=== PATIENT | female | born 1930 | race Caucasian/White ===

== ENCOUNTER 2018-03-23 13:07 | Inpatient (IN) ==
[2018-03-23] MEDS ORDERED: Bisacodyl 10 MG Supp RECTAL PRN (15:29)
[2018-03-23] MEDS ORDERED: Acetaminophen 325 MG Tablet PO PRN (15:29)
[2018-03-23] MEDS ORDERED: Aluminum/Magnesium/Simethacone Susp 30 ML UDC PO PRN (15:59)
[2018-03-23] MEDS ORDERED: Acetaminophen/Codeine 300/30 MG Tablet PO PRN (16:00)
--- NOTE | 2018-03-23 16:18 | XR ---
EXAM DATE: 03/23/2018 4:15 PM EST AGE/SEX: 87 years / Female INDICATIONS: Shortness of breath. CLINICAL DATA: This is the patient's initial encounter. Patient reports that signs and symptoms have been present for 1 day and indicates a pain score of 0/10. MEDICAL/SURGICAL HISTORY: Congestive heart failure. Stroke. None. COMPARISON: POI, XR CHEST PA AND LAT, 04/30/2016. . FINDINGS: Bilateral pulmonary infiltrates are noted consistent with pulmonary edema or pneumonia. Clinical le elation is recommended. The heart is mildly enlarged but stable. Right shoulder prosthesis is noted. Degenerative changes and scoliosis are noted throughout the thoracolumbar spine. CONCLUSION: 1. Bilateral pulmonary infiltrates are noted consistent with pulmonary edema or pneumonia. Clinical correlation is recommended. 2. Mild cardiomegaly. 3. Degenerative changes and scoliosis are noted throughout the thoracolumbar spine. Electronically signed by: Kyree Page MD Board Certified Radiologist 03/23/2018 4:17 PM EST
[2018-03-23 17:15] LABS: Baso # (Auto) 0.1 th/mm3 (0.0-0.2); Baso % (Auto) 0.7 % (0.0-2.0); Eos # (Auto) 0.3 th/mm3 (0.0-0.4); Eos % (Auto) 2.9 % (0.0-4.0); Hematocrit 43.1 % (35.0-46.0); Hemoglobin 14.4 gm/dL (11.6-15.3); Lymph % (Auto) 10.8 % (9.0-44.0); Mean Corpuscular HGB Conc 33.4 % (32.0-36.0); Mean Corpuscular Hemoglobin 31.3 pg (27.0-34.0); Mean Corpuscular Volume 93.9 fL (80.0-100.0); Mean Platelet Volume 11.1 fL (7.0-11.0); Mono # (Auto) 0.8 th/mm3 (0.0-0.9); Mono % (Auto) 9.1 % (0.0-8.0); Neut # (Auto) 7.1 th/mm3 (1.8-7.7); Neut % (Auto) 76.5 % (16.0-70.0); Platelet Count 235 th/mm3 (150-450); Red Blood Count 4.59 mil/mm3 (4.00-5.30); Red Cell Distribution Width 15.1 % (11.6-17.2); White Blood Count 9.3 th/mm3 (4.0-11.0)
[2018-03-23 17:23] LABS: INR 1.3 Ratio; Prothrombin Time 12.8 sec (9.8-11.6)
--- NOTE | 2018-03-23 17:28 | P.HPIM ---
History of Present Illness Primary Care Physician: UNKNOWN History of Present Illness: 87-year-old female with a history of atrial fibrillation, hypertension, diastolic CHF who presents as a direct admission from her pull tab dealer Dr. Waller's office with a 3-week history of progressively worsening shortness of breath, generalized fatigue, as well as bilateral lower extremity swelling now with weeping in bilateral legs over the past 3 days. She denies any chest pain. Denies any nausea or vomiting. Denies any cough. Denies any recent medication changes. daughter reports that echocardiogram was performed in Dr. Smith's office. Inpatient Certification: I certify that the inpatient services were ordered in accordance with Medicare regulations governing the order. This includes certification that hospital inpatient services are reasonable and necessary and in the case of services not specified as inpatient-only under 42 CFR 419.22(n), that they are appropriately provided as inpatient services in accordance to with the 2-midnight benchmark under 43 CFR 412.3(e) Estimated Total Length of Stay (Days): 2 Plans for Post Hospital Care: Not yet determined Review of Systems All other systems reviewed negative except as stated in HPI PMFSH - History History Provided By: Patient - Medical History Medical History: Medical History (Last Reviewed 03/23/18 @ 17:19 by Jacobo Cheng MD) Atrial fibrillation CVA (cerebral vascular accident) Cataract Diastolic CHF GERD (gastroesophageal reflux disease) Hypertension Hypothyroidism Mitral regurgitation Neuropathy Overactive bladder - Surgical History Surgical History: Surgical History (Last Reviewed 03/23/18 @ 17:19 by Jacobo Cheng MD) History of appendectomy History of bladder surgery History of cholecystectomy History of hip replacement History of knee replacement procedure of left knee History of knee replacement procedure of right knee - Family History Family History: Family History (Last Reviewed 03/23/18 @ 17:19 by Jacoob Cheng MD) Father Emphysema of lung Mother Age older than 85 years - Social History I have reviewed the patient's Social History: Yes - Tobacco History Second Hand Smoke Exposure: No Tobacco Use In Past 30 Days: No Smoking Status: Former smoker Tobacco Type: Cigarettes - Alcohol History How Often Do You Have a Drink Containing Alcohol: Never - Substance Use History Substance History: No History of Abuse Medications and Allergies Active Medications: Active Medications Acetaminophen (Tylenol) 650 mg PO Q4H PRN PRN Reason: PAIN 1-3 OR TEMP >101 F Acetaminophen/Codeine Phosphate (Tylenol W/Cod #3) 2 tab PO Q4H PRN PRN Reason: MODERATE PAIN 4-5 Al Hydrox/Mg Hydrox/Simethicone (Mag-Al Plus Susp Liq) 30 ml PO Q2H PRN PRN Reason: CONSTIPATION Al Hydroxide/Mg Hydroxide (Milk Of Magnesia Liq) 30 ml PO Q12H PRN PRN Reason: Mild Constipation Bisacodyl (Dulcolax Supp) 10 mg RECTAL DAILY PRN PRN Reason: SEVERE CONSITIPATION Furosemide (Lasix Inj) 40 mg IV.PUSH BID [facility] Lactulose (Lactulose Liq) 30 ml PO DAILY PRN PRN Reason: SEVERE CONSITIPATION Levothyroxine Sodium (Synthroid) 75 mcg PO DAILY@0600 [facility] Ondansetron HCl (Zofran Inj) 4 mg IV.PUSH Q6H PRN PRN Reason: NAUSEA OR VOMITING Rivaroxaban (Xarelto) 20 mg PO DAILY [facility] Sennosides (Senokot) 17.2 mg PO Q12H PRN PRN Reason: Moderate Constipation Sodium Chloride (Ns Flush) 2 ml IV.FLUSH BID [facility] Sodium Chloride (Ns Flush) 2 ml IV.FLUSH PRN PRN PRN Reason: FLUSH AFTER USING IV ACCESS Spironolactone (Aldactone) 25 mg PO BID [facility] Temazepam (Restoril) 15 mg PO HS PRN PRN Reason: SLEEP Allergies Allergy/AdvReac Type Severity Reaction Status Date / Time aspirin Allergy Severe GI BLEED Unverified 11/17/16 13:22 diclofenac Allergy Severe GI BLEED Unverified 11/17/16 13:22 etodolac Allergy Severe GI BLEED Unverified 11/17/16 13:22 flurbiprofen Allergy Severe GI BLEED Unverified 11/17/16 13:22 ibuprofen Allergy Severe GI BLEED Unverified 11/17/16 13:22 indomethacin Allergy Severe GI BLEED Unverified 11/17/16 13:22 ketoprofen Allergy Severe GI BLEED Unverified 11/17/16 13:22 ketorolac Allergy Severe GI BLEED Unverified 11/17/16 13:22 naproxen Allergy Severe GI BLEED Unverified 11/17/16 13:22 oxaprozin Allergy Severe GI BLEED Unverified 11/17/16 13:22 penicillin G Allergy Intermediate Hives Unverified 11/17/16 13:22 codeine Allergy Mild N/V Unverified 11/17/16 13:22 morphine AdvReac Intermediate NAUSEA Unverified 11/17/16 13:22 Home Medications Medication Instructions Recorded Confirmed Type furosemide [Lasix] 20 mg PO DAILY 03/23/18 03/23/18 History gabapentin 100 mg PO DAILY 03/23/18 03/23/18 History levothyroxine [Synthroid] 75 mcg PO DAILY 03/23/18 03/23/18 History nifedipine [Procardia XL] 30 mg PO DAILY 03/23/18 03/23/18 History rivaroxaban [Xarelto] 20 mg PO QPM 03/23/18 03/23/18 History spironolactone 25 mg PO BID 03/23/18 03/23/18 History vitamin [id number] acid 1 tab PO DAILY 03/23/18 03/23/18 History Exam Vital signs: Vital Signs 03/23/18 16:38 Pulse Rate 87 Respiratory Rate 20 Blood Pressure 125/79 Pulse Oximetry 97 Narrative: GENERAL: Patient sitting up in chair. Appears comfortable. SKIN: Warm and dry. HEAD: Atraumatic. Normocephalic. EYES: Pupils equal and round. No scleral icterus. No injection or drainage. ENT: No nasal bleeding or discharge. Mucous membranes pink and moist. NECK: Trachea midline. No JVD. CARDIOVASCULAR: Regular rate and rhythm. RESPIRATORY: No accessory muscle use. Clear to auscultation. Patient has some crackles in the bases. Breath sounds equal bilaterally. GASTROINTESTINAL: Abdomen soft, non-tender, nondistended. Hepatic and splenic margins not palpable. MUSCULOSKELETAL: Extremities without clubbing, cyanosis. +3 bilateral lower extremity edema with very faint erythema, weeping. No obvious deformities. NEUROLOGICAL: Awake and alert. No obvious cranial nerve deficits. Motor grossly within normal limits. Five out of 5 muscle strength in the arms and legs. Normal speech. PSYCHIATRIC: Appropriate mood and affect; insight and judgment normal. Results - Imaging Impressions Chest X-Ray 03/23/18 00:00 CONCLUSION: 1. Bilateral pulmonary infiltrates are noted consistent with pulmonary edema or pneumonia. Clinical correlation is recommended. 2. Mild cardiomegaly. 3. Degenerative changes and scoliosis are noted throughout the thoracolumbar spine. Caprini VTE Risk Assessment Caprini VTE Risk Assessment: Moderate/High Risk (score >= 2) Caprini Risk Assessment Model: Point Value = 1 Point Value = 2 Point Value = 3 Point Value = 5 Age 41-60 Minor surgery BMI > 25 kg/m2 Swollen legs Varicose veins or History of unexplained or recurrent spontaneous Oral contraceptives or hormone replacement Sepsis (< 1 month) Serious lung disease, including pneumonia (< 1 month) Abnormal pulmonary function Acute myocardial infarction Congestive heart failure (< 1 month) History of inflammatory bowel disease Medical patient at bed rest Age 61-74 Arthroscopic surgery Major open surgery (> 45 min) Laparoscopic surgery (> 45 min) Malignancy Confined to bed (> 72 hours) Immobilizing plaster cast Central venous access Age >= 75 History of VTE Family history of VTE Factor V Leiden Prothrombin [id number] Lupus anticoagulant Anticardiolipin antibodies Elevated serum homocysteine Heparin-induced thrombocytopenia Other congenital or acquired thrombophilia Stroke (< 1 month) Elective arthroplasty Hip, pelvis, or leg fracture Acute spinal cord injury (< 1 month) Prophylaxis Regimen: Total Risk Factor Score Risk Level Prophylaxis Regimen 0-1 Low Early ambulation 2 Moderate Order ONE of the following: *Sequential Compression Device (SCD) *Heparin 5000 units SQ BID 3-4 Higher Order ONE of the following medications: *Heparin 5000 units SQ TID *Enoxaparin/Lovenox 40 mg SQ daily (WT < 150 kg, CrCl > 30 mL/min) *Enoxaparin/Lovenox 30 mg SQ daily (WT < 150 kg, CrCl > 10-29 mL/min) *Enoxaparin/Lovenox 30 mg SQ BID (WT < 150 kg, CrCl > 30 mL/min) AND/OR *Sequential Compression Device (SCD) 5 or more Highest Order ONE of the following medications: *Heparin 5000 units SQ TID (Preferred with Epidurals) *Enoxaparin/Lovenox 40 mg SQ daily (WT < 150 kg, CrCl > 30 mL/min) *Enoxaparin/Lovenox 30 mg SQ daily (WT < 150 kg, CrCl > 10-29 mL/min) *Enoxaparin/Lovenox 30 mg SQ BID (WT < 150 kg, CrCl > 30 mL/min) AND *Sequential Compression Device (SCD) Assessment and Plan - Plan //Acute diastolic CHF exacerbation. = Direct admission from pull tab dealer office -Echocardiogram with Doppler performed at Dr. Smith's office = Chest x-ray with bilateral pulmonary edema. Extreme bilateral lower extremity edema = Basic labs including BNP ordered. = We will consult pull tab dealer. Patient placed on twice daily IV Lasix, spironolactone. Fluid restrictions. Continue to monitor fluid status. Monitor labs tomorrow. //History of atrial fibrillation with history of CVA. Continue on Xarelto at night with dinner. /Hypertension. Blood pressure acceptable. Patient with significant bilateral lower extremity edema. Will hold off on nifedipine until return BNP. Patient may benefit from change in medication. Blood pressure acceptable currently. Continue to monitor. //Hypothyroidism. Chronic. Patient denies chills, however appears to be cold in the room which does not seem to be that cold. We will check TSH. //Chronic neuropathy. Continue home medication. Discussed Condition With: Patient, nurse, daughter at bedside, pull tab dealer Discharge Planning: Pending improvement PT consult ordered and pending. H&P: Quality - VTE Deep Vein Thrombosis/Pulmonary Embolism Present on Admission: No
[2018-03-23 17:35] LABS: Albumin 3.4 g/dL (3.4-5.0); Anion Gap 7 meq/L (5-15); Aspartate Aminotransferase 22 U/L (15-37); Blood Urea Nitrogen 26 mg/dL (7-18); Calcium 9.1 mg/dL (8.5-10.1); Carbon Dioxide 27.9 meq/L (21.0-32.0); Chloride 105 meq/L (98-107); Glomerular Filtration Rate 47 mL/min (>89); Glucose,Random 96 mg/dL (74-106); Potassium 4.2 meq/L (3.5-5.1); Sodium 140 meq/L (136-145)
[2018-03-23 17:38] LABS: Alanine Aminotransferase 14 U/L (10-53); Alkaline Phosphatase 71 U/L (45-117); Total Protein 7.5 g/dL (6.4-8.2)
[2018-03-23] MEDS ORDERED: Rivaroxaban 20 MG Tablet PO SCH (18:00)
[2018-03-23] MEDS ORDERED: Temazepam 15 MG Capsule PO PRN (21:00)
[2018-03-23 23:21] LABS: Bacteria,Urine Rare /hpf; Bilirubin,Urine Negative (Negative); Clarity,Urine Hazy (Clear); Color,Urine Yellow (Yellw/Straw); Glucose,Urine (UA) Negative (Negative); Hyaline Casts,Urine 3 /lpf (0-3); Leukocyte Esterase,Urine Moderate (Negative); Mucus,Urine Few /lpf (Occasional); Nitrite,Urine Negative (Negative); Specific Gravity,Urine 1.019 (1.002-1.035); Squamous Epithelial Cell,Urine 1 /hpf (0-5)
[2018-03-24] MEDS: Spironolactone 25 MG Tablet PO SCH ×3 (00:21→21:26)
[2018-03-24] MEDS: Levothyroxine 75 MCG Tablet PO SCH (06:14)
[2018-03-24 06:46] LABS: Baso # (Auto) 0.1 th/mm3 (0.0-0.2); Baso % (Auto) 0.8 % (0.0-2.0); Eos # (Auto) 0.3 th/mm3 (0.0-0.4); Eos % (Auto) 3.7 % (0.0-4.0); Hematocrit 41.8 % (35.0-46.0); Hemoglobin 14.2 gm/dL (11.6-15.3); Lymph % (Auto) 11.9 % (9.0-44.0); Mean Corpuscular HGB Conc 33.9 % (32.0-36.0); Mean Corpuscular Hemoglobin 31.3 pg (27.0-34.0); Mean Corpuscular Volume 92.2 fL (80.0-100.0); Mean Platelet Volume 10.6 fL (7.0-11.0); Mono # (Auto) 0.9 th/mm3 (0.0-0.9); Mono % (Auto) 10.7 % (0.0-8.0); Neut # (Auto) 6.4 th/mm3 (1.8-7.7); Neut % (Auto) 72.9 % (16.0-70.0); Platelet Count 229 th/mm3 (150-450); Red Blood Count 4.53 mil/mm3 (4.00-5.30); Red Cell Distribution Width 14.4 % (11.6-17.2); White Blood Count 8.7 th/mm3 (4.0-11.0)
[2018-03-24 07:06] LABS: Albumin 3.1 g/dL (3.4-5.0); Anion Gap 7 meq/L (5-15); Aspartate Aminotransferase 23 U/L (15-37); Blood Urea Nitrogen 27 mg/dL (7-18); Calcium 9.3 mg/dL (8.5-10.1); Carbon Dioxide 25.7 meq/L (21.0-32.0); Chloride 103 meq/L (98-107); Glomerular Filtration Rate 44 mL/min (>89); Glucose,Random 91 mg/dL (74-106); Sodium 136 meq/L (136-145)
[2018-03-24 07:08] LABS: Alanine Aminotransferase 12 U/L (10-53)
[2018-03-24 07:10] LABS: Alkaline Phosphatase 67 U/L (45-117); Total Protein 6.7 g/dL (6.4-8.2)
[2018-03-24] MEDS ORDERED: Rivaroxaban 20 MG Tablet PO SCH (09:00)
--- NOTE | 2018-03-24 09:47 | P.PNWCN ---
Wound Care Nurse Consult Additional information: Patient not seen for Lower L leg wound management. Spoke with RN Purvi Ramirez , per RN skin on L lower extremity is intact, but patient has weeping to L lower extremity. Recommend leaving L lower extremity open to air and apply extrasorb moisture wicking disposable pad under L leg and changing as needed. Please Elevate Bilateral lower extremities with pillows.
[2018-03-24] MEDS: Carvedilol 6.25 MG Tablet PO SCH ×2 (10:35→21:26)
[2018-03-24] MEDS: Acetaminophen 325 MG Tablet PO PRN (10:35)
--- NOTE | 2018-03-24 10:39 | P.CONCA ---
History of Present Illness Service: Cardiology Consult date: 03/24/18 Requesting Physician: Jacobo Cheng Reason for Consult: CHF Primary Care Provider: Dr Purvis Chief Complaint: SOB and edema History of Present Illness: The patient is an 87-year-old female known to our practice with a past cardiac history of atrial fibrillation and stroke anticoagulated on Xarelto, hypertension, moderate to severe left ventricular hypertrophy, new cardiomyopathy with ejection fraction of 40% on echocardiogram in the office yesterday. Patient presented to our office yesterday at the request of Dr. Clement for concerns of weeping bilateral lower extremity and shortness of breath. On evaluation, the patient was noted to be in acute exacerbation of congestive heart failure despite outpatient oral diuretic therapy. She was advised to go to the hospital for which she agreed. Since admission, chest x- ray and lab work are consistent with acute exacerbation of congestive heart failure. Since admission, the patient had a 15 beat run of nonsustained ventricular tachycardia overnight and runs of atrial fibrillation with rapid ventricular response with rates up to 140 bpm. The patient is asymptomatic of nonsustained ventricular tachycardia and tachycardia. Overall, the patient states she feels about the same as she did yesterday. She continues to have symptoms of orthopnea, shortness of breath with exertion and bilateral lower extremity edema. Patient denies symptoms of chest pain, heart palpitations, abdominal fullness, nausea or vomiting. No change in bowel habits. Review of Systems All other systems reviewed negative except as stated in HPI PMFSH - History History Provided By: Patient - Medical History Medical History: Medical History (Last Reviewed 03/25/18 @ 08:39 by Jason Felton, PT) Atrial fibrillation CVA (cerebral vascular accident) Cataract Diastolic CHF GERD (gastroesophageal reflux disease) Hypertension Hypothyroidism Mitral regurgitation Neuropathy Overactive bladder - Surgical History Surgical History: Surgical History (Last Reviewed 03/24/18 @ 08:37 by Aman Dominguez) History of appendectomy History of bladder surgery History of cholecystectomy History of hip replacement History of knee replacement procedure of left knee History of knee replacement procedure of right knee - Family History Family History: Family History (Last Reviewed 03/23/18 @ 17:19 by Jacobo Cheng MD) Father Emphysema of lung Mother Age older than 85 years - Tobacco History Second Hand Smoke Exposure: No Tobacco Use In Past 30 Days: No Smoking Status: Former smoker Tobacco Type: Cigarettes - Alcohol History How Often Do You Have a Drink Containing Alcohol: Never - Substance Use History Substance History: No History of Abuse Medications and Allergies Allergies Allergy/AdvReac Type Severity Reaction Status Date / Time aspirin Allergy Severe GI BLEED Verified 03/23/18 17:42 diclofenac Allergy Severe GI BLEED Verified 03/23/18 17:42 etodolac Allergy Severe GI BLEED Verified 03/23/18 17:42 flurbiprofen Allergy Severe GI BLEED Verified 03/23/18 17:42 ibuprofen Allergy Severe GI BLEED Verified 03/23/18 17:42 indomethacin Allergy Severe GI BLEED Verified 03/23/18 17:42 ketoprofen Allergy Severe GI BLEED Verified 03/23/18 17:42 ketorolac Allergy Severe GI BLEED Verified 03/23/18 17:42 naproxen Allergy Severe GI BLEED Verified 03/23/18 17:42 oxaprozin Allergy Severe GI BLEED Verified 03/23/18 17:42 penicillin G Allergy Intermediate Hives Verified 03/23/18 17:42 codeine Allergy Mild N/V Verified 03/23/18 17:42 morphine AdvReac Intermediate NAUSEA Verified 03/23/18 17:42 Home Medications Medication Instructions Recorded Confirmed Type furosemide [Lasix] 20 mg PO DAILY 03/23/18 03/23/18 History gabapentin 100 mg PO DAILY 03/23/18 03/23/18 History levothyroxine [Synthroid] 75 mcg PO DAILY 03/23/18 03/23/18 History nifedipine [Procardia XL] 30 mg PO DAILY 03/23/18 03/23/18 History rivaroxaban [Xarelto] 20 mg PO QPM 03/23/18 03/23/18 History spironolactone 25 mg PO BID 03/23/18 03/23/18 History vitamin [id number] acid 1 tab PO DAILY 03/23/18 03/23/18 History Active Medications: Active Medications Acetaminophen (Tylenol) 650 mg PO Q4H PRN PRN Reason: PAIN 1-3 OR TEMP >101 F Al Hydrox/Mg Hydrox/Simethicone (Mag-Al Plus Susp Liq) 30 ml PO Q2H PRN PRN Reason: CONSTIPATION Al Hydroxide/Mg Hydroxide (Milk Of Magnesia Liq) 30 ml PO Q12H PRN PRN Reason: Mild Constipation Bisacodyl (Dulcolax Supp) 10 mg RECTAL DAILY PRN PRN Reason: SEVERE CONSITIPATION Carvedilol (Coreg) 6.25 mg PO BID [facility] Furosemide (Lasix Inj) 40 mg IV.PUSH BID [facility] Last Admin: 03/24/18 08:31 Dose: 40 mg Lactulose (Lactulose Liq) 30 ml PO DAILY PRN PRN Reason: SEVERE CONSITIPATION Levothyroxine Sodium (Synthroid) 75 mcg PO DAILY@0600 [facility] Last Admin: 03/24/18 06:14 Dose: 75 mcg Ondansetron HCl (Zofran Inj) 4 mg IV.PUSH Q6H PRN PRN Reason: NAUSEA OR VOMITING Rivaroxaban (Xarelto) 15 mg PO AC [facility] Sennosides (Senokot) 17.2 mg PO Q12H PRN PRN Reason: Moderate Constipation Sodium Chloride (Ns Flush) 2 ml IV.FLUSH BID [facility] Last Admin: 03/24/18 10:05 Dose: 2 ml Sodium Chloride (Ns Flush) 2 ml IV.FLUSH PRN PRN PRN Reason: FLUSH AFTER USING IV ACCESS Spironolactone (Aldactone) 25 mg PO BID [facility] Last Admin: 03/24/18 08:26 Dose: 25 mg Temazepam (Restoril) 15 mg PO HS PRN PRN Reason: SLEEP Exam Vital signs: Vital Signs 03/23/18 16:00 03/23/18 16:38 03/23/18 17:00 Temperature Pulse Rate 72 87 76 Respiratory Rate 20 Blood Pressure 125/79 Pulse Oximetry 97 03/23/18 18:00 03/23/18 19:00 03/23/18 20:00 Temperature 97.7 F Pulse Rate 84 71 70 Respiratory Rate 16 Blood Pressure 122/62 Pulse Oximetry 94 L 03/23/18 21:00 03/23/18 22:00 03/23/18 23:00 Temperature 97.9 F Pulse Rate 70 76 67 Respiratory Rate 14 Blood Pressure 105/66 Pulse Oximetry 95 03/24/18 00:00 03/24/18 01:00 03/24/18 02:00 Temperature Pulse Rate 76 66 66 Respiratory Rate Blood Pressure Pulse Oximetry 03/24/18 03:00 03/24/18 04:00 03/24/18 05:00 Temperature 98.9 F Pulse Rate 84 74 70 Respiratory Rate 14 Blood Pressure 120/70 Pulse Oximetry 94 L 12/20/18 06:00 03/24/18 07:00 Temperature 98.2 F Pulse Rate 84 83 Respiratory Rate 16 Blood Pressure 101/65 Pulse Oximetry 95 Intake & Output 03/23/18 03/24/18 03/24/18 18:59 06:59 18:59 Intake Total 240 / 240 240 / 240 Output Total 2550 / 2550 Balance 240 / 240 -2310 / -2310 Weight 82.9 kg Intake: Oral 240 / 240 240 / 240 Output: Urine 2550 / 2550 - Constitutional no acute distress - Routine HEENT Exam Head: Present: normocephalic, atraumatic Eye: Present: EOMI, PERRL ENT: Present: mucous membranes moist - Routine Neck Exam Present: supple, JVD - Routine Respiratory Exam Present: rales Comments: Tolerating room air - Routine Cardiovascular Exam Present: irregularly irregular - Routine Abdominal Exam Present: soft, normoactive bowel sounds - Routine Extremities Exam Present: edema - Routine Skin Exam Present: intact, warm - Routine Neurological Exam Present: alert, oriented X3 Results 03/25/18 04:13 03/25/18 04:13 Cardiac Enzymes 03/23/18 03/23/18 03/24/18 Range/Units 16:06 16:06 06:03 AST 22 23 (15-37) U/L B-Natriuretic Peptide 256 H (0-100) pg/mL Coagulation 03/23/18 03/23/18 Range/Units 16:06 16:06 PT 12.8 H (9.8-11.6) sec B-Natriuretic Peptide 256 H (0-100) pg/mL CBC 03/23/18 03/24/18 Range/Units 16:06 06:03 WBC 9.3 8.7 (4.0-11.0) th/mm3 RBC 4.59 4.53 (4.00-5.30) mil/mm3 Hgb 14.4 14.2 (11.6-15.3) gm/dL Hct 43.1 41.8 (35.0-46.0) % Plt Count 235 229 (150-450) th/mm3 Neut # (Auto) 7.1 6.4 (1.8-7.7) th/mm3 Lymph # (Auto) 1.0 1.0 (1.0-4.8) th/mm3 [place] # (Auto) 0.8 0.9 (0.0-0.9) th/mm3 Eos # (Auto) 0.3 0.3 (0.0-0.4) th/mm3 Baso # (Auto) 0.1 0.1 (0.0-0.2) th/mm3 Comprehensive Metabolic Panel 03/23/18 03/24/18 Range/Units 16:06 06:03 Sodium 140 136 (136-145) meq/L Potassium 4.2 4.0 (3.5-5.1) meq/L Chloride 105 103 (98-107) meq/L Carbon Dioxide 27.9 25.7 (21.0-32.0) meq/L BUN 26 H 27 H (7-18) mg/dL Creatinine 1.10 H 1.17 H (0.50-1.00) mg/dL Calcium 9.1 9.3 (8.5-10.1) mg/dL AST 22 23 (15-37) U/L ALT 14 12 (10-53) U/L Alkaline Phosphatase 71 67 (45-117) U/L Total Protein 7.5 6.7 D (6.4-8.2) g/dL Albumin 3.4 3.1 L (3.4-5.0) g/dL Intake and Output 03/23/18 03/24/18 03/24/18 22:59 06:59 14:59 Intake Total 240 / 240 240 / 240 Output Total 2550 / 2550 Balance 240 / 240 -2310 / -2310 Intake: Oral 240 / 240 240 / 240 Output: Urine 2550 / 2550 Other: Weight 82.9 kg - Imaging and Cardiology Imaging: Impressions Chest X-Ray 03/23/18 00:00 CONCLUSION: 1. Bilateral pulmonary infiltrates are noted consistent with pulmonary edema or pneumonia. Clinical correlation is recommended. 2. Mild cardiomegaly. 3. Degenerative changes and scoliosis are noted throughout the thoracolumbar spine. Echo: other (March 23, 2019 transthoracic cardiac echo in the office: Ejection fraction 40%, moderate to severe left ventricular hypertrophy, left atrial enlargement, mild mitral regurgitation, mild tricuspid regurgitation, trace pulmonic insufficiency) - EKG Interpretation EKG shows: atrial fibrillation Assessment and Plan - Plan Acute exacerbation of congestive heart failure with mid range ejection fraction. Recent decrease of ejection fraction from 51% to 40% on the basis of echocardiogram completed in the office yesterday. Atrial fibrillation with history of stroke anticoagulated on Xarelto. 15 beat run of nonsustained ventricular tachycardia Hypertension history Hypothyroid Plan: Start Coreg 6.25 mg twice a day with hold parameters Continue IV diuresis Continue spironolactone Continue to follow up renal function and electrolytes Plan to start a small dose of Entresto before discharge The patient meets criteria for Xarelto 15 mg daily on the basis of creatinine clearance 42 The patient was seen and evaluated by Dr. Smith who completed [id number] encounter and physical exam and participated in evaluation and management. Overall doing better will continue diuresis.
--- NOTE | 2018-03-24 13:55 | P.PNIM ---
Subjective Interval history: Patient says she is feeling little better than yesterday. Denies any chest pain. Reports shortness of breath improved. Physical Exam Vital signs: Vital Signs 03/23/18 16:00 03/23/18 16:38 03/23/18 17:00 Temperature Pulse Rate 72 87 76 Respiratory Rate 20 Blood Pressure 125/79 Pulse Oximetry 97 03/23/18 18:00 03/23/18 19:00 03/23/18 20:00 Temperature 97.7 F Pulse Rate 84 71 70 Respiratory Rate 16 Blood Pressure 122/62 Pulse Oximetry 94 L 03/23/18 21:00 03/23/18 22:00 03/23/18 23:00 Temperature 97.9 F Pulse Rate 70 76 67 Respiratory Rate 14 Blood Pressure 105/66 Pulse Oximetry 95 03/24/18 00:00 03/24/18 01:00 03/24/18 02:00 Temperature Pulse Rate 76 66 66 Respiratory Rate Blood Pressure Pulse Oximetry 03/24/18 03:00 03/24/18 04:00 03/24/18 05:00 Temperature 98.9 F Pulse Rate 84 74 70 Respiratory Rate 14 Blood Pressure 120/70 Pulse Oximetry 94 L 03/24/18 06:00 03/24/18 07:00 03/24/18 08:00 Temperature 98.2 F Pulse Rate 84 83 76 Respiratory Rate 16 Blood Pressure 101/65 Pulse Oximetry 95 03/24/18 09:00 03/24/18 10:00 03/24/18 11:00 Temperature 97.6 F Pulse Rate 88 74 71 Respiratory Rate 16 Blood Pressure 126/71 Pulse Oximetry Intake & Output 03/23/18 03/24/18 03/24/18 18:59 06:59 18:59 Intake Total 240 / 240 240 / 240 Output Total 2550 / 2550 Balance 240 / 240 -2310 / -2310 Weight 82.9 kg Intake: Oral 240 / 240 240 / 240 Output: Urine 2550 / 2550 Narrative: GENERAL: Patient sitting up in recliner. Appears comfortable. SKIN: Warm and dry. HEAD: Normocephalic. EYES: No scleral icterus. No injection or drainage. NECK: Supple, trachea midline. No JVD. CARDIOVASCULAR: Regular rate and rhythm without murmurs, gallops, or rubs. RESPIRATORY: Breath sounds equal bilaterally. No accessory muscle use. GASTROINTESTINAL: Abdomen soft, non-tender, nondistended. MUSCULOSKELETAL: No cyanosis. +3 peripheral edema. No weeping today. Improved. BACK: Nontender without obvious deformity. No CVA tenderness. Results - Labs CBC & Chem 7: 03/24/18 06:03 03/24/18 06:03 Laboratory Results - last 24 hr 03/23/18 03/23/18 03/23/18 16:06 16:06 16:06 WBC 9.3 RBC 4.59 Hgb 14.4 Hct 43.1 MCV 93.9 MCH 31.3 MCHC 33.4 RDW 15.1 Plt Count 235 MPV 11.1 H Neut % (Auto) 76.5 H Lymph % (Auto) 10.8 [place] % (Auto) 9.1 H Eos % (Auto) 2.9 Baso % (Auto) 0.7 Neut # (Auto) 7.1 Lymph # (Auto) 1.0 [place] # (Auto) 0.8 Eos # (Auto) 0.3 Baso # (Auto) 0.1 WBC Differential . Differential Comment Auto diff final PT 12.8 H INR 1.3 Sodium 140 Potassium 4.2 Chloride 105 Carbon Dioxide 27.9 Anion Gap 7 BUN 26 H Creatinine 1.10 H Estimated GFR 47 L Random Glucose 96 Calcium 9.1 Total Bilirubin 0.7 AST 22 ALT 14 Alkaline Phosphatase 71 B-Natriuretic Peptide Total Protein 7.5 Albumin 3.4 TSH Urine Color Urine Clarity Urine pH Ur Specific [place] Urine Protein Urine Glucose (UA) Urine Ketones Urine Occult Blood Urine Nitrate Urine Bilirubin Urine Urobilinogen Ur Leukocyte Esterase Urine RBC Urine WBC Ur Squamous Epith Cells Urine Bacteria Hyaline Casts Urine Mucus Ur Microscopic Review 03/23/18 03/23/18 03/23/18 16:06 16:06 19:32 WBC RBC Hgb Hct MCV MCH MCHC RDW Plt Count MPV Neut % (Auto) Lymph % (Auto) [place] % (Auto) Eos % (Auto) Baso % (Auto) Neut # (Auto) Lymph # (Auto) [place] # (Auto) Eos # (Auto) Baso # (Auto) WBC Differential Differential Comment PT INR Sodium Potassium Chloride Carbon Dioxide Anion Gap BUN Creatinine Estimated GFR Random Glucose Calcium Total Bilirubin AST ALT Alkaline Phosphatase B-Natriuretic Peptide 256 H Total Protein Albumin TSH 1.720 Urine Color Yellow Urine Clarity Hazy H Urine pH 5.0 Ur Specific [place] 1.019 Urine Protein Negative Urine Glucose (UA) Negative Urine Ketones Negative Urine Occult Blood Negative Urine Nitrate Negative Urine Bilirubin Negative Urine Urobilinogen Less than 2 Ur Leukocyte Esterase Moderate H Urine RBC 1 Urine WBC 19 H Ur Squamous Epith Cells 1 Urine Bacteria Rare H Hyaline Casts 3 Urine Mucus Few H Ur Microscopic Review Not Reportable 03/24/18 03/24/18 06:03 06:03 WBC 8.7 RBC 4.53 Hgb 14.2 Hct 41.8 MCV 92.2 MCH 31.3 MCHC 33.9 RDW 14.4 Plt Count 229 MPV 10.6 Neut % (Auto) 72.9 H Lymph % (Auto) 11.9 [place] % (Auto) 10.7 H Eos % (Auto) 3.7 Baso % (Auto) 0.8 Neut # (Auto) 6.4 Lymph # (Auto) 1.0 [place] # (Auto) 0.9 Eos # (Auto) 0.3 Baso # (Auto) 0.1 WBC Differential . Differential Comment Auto diff final PT INR Sodium 136 Potassium 4.0 Chloride 103 Carbon Dioxide 25.7 Anion Gap 7 BUN 27 H Creatinine 1.17 H Estimated GFR 44 L Random Glucose 91 Calcium 9.3 Total Bilirubin 0.8 AST 23 ALT 12 Alkaline Phosphatase 67 B-Natriuretic Peptide Total Protein 6.7 D Albumin 3.1 L TSH Urine Color Urine Clarity Urine pH Ur Specific [place] Urine Protein Urine Glucose (UA) Urine Ketones Urine Occult Blood Urine Nitrate Urine Bilirubin Urine Urobilinogen Ur Leukocyte Esterase Urine RBC Urine WBC Ur Squamous Epith Cells Urine Bacteria Hyaline Casts Urine Mucus Ur Microscopic Review - Imaging Impressions Chest X-Ray 03/23/18 00:00 CONCLUSION: 1. Bilateral pulmonary infiltrates are noted consistent with pulmonary edema or pneumonia. Clinical correlation is recommended. 2. Mild cardiomegaly. 3. Degenerative changes and scoliosis are noted throughout the thoracolumbar spine. Assessment and Plan - Plan //Acute diastolic CHF exacerbation. = Direct admission from pet adoption counselor office -Echocardiogram with Doppler performed at Dr. Smith's office = Chest x-ray with bilateral pulmonary edema. Extreme bilateral lower extremity edema = Basic labs including BNP ordered. = We will consult pet adoption counselor. Patient placed on twice daily IV Lasix, spironolactone. Fluid restrictions. Continue to monitor fluid status. Monitor labs tomorrow. = Cardiology following. Hold off on nifedipine due to peripheral edema. Cardiology would like to start patient on Entresto. Continue to monitor //History of atrial fibrillation with history of CVA. Continue on Xarelto at night with dinner. = Xarelto dose changed by cardiology due to renal insufficiency. /Hypertension. Blood pressure acceptable. Patient with significant bilateral lower extremity edema. Will hold off on nifedipine until return BNP. Patient may benefit from change in medication. Blood pressure acceptable currently. Continue to monitor. = Blood pressure acceptable. Continue to monitor. //Hypothyroidism. Chronic. Patient denies chills, however appears to be cold in the room which does not seem to be that cold. We will check TSH. //Chronic neuropathy. Continue home medication. Discharge Planning: PT consult still pending Hopefully discharge tomorrow if improved.
[2018-03-24] MEDS: Rivaroxaban 15 MG Tablet PO SCH (17:38)
--- NOTE | 2018-03-24 17:51 | ECG ---
Date Performed: 03/23/2018 Time Performed: 17:07:08 PTAGE: 87 years EKG: Atrial fibrillation with PVC(s) or aberrant ventricular conduction. Left axis deviation Poo r R wave progression - cannot rule out anteroseptal infarct Abnormal ECG Compared to PREVIOUS TRACING , axis more leftward and the QRS is slightly wider. PREVIOUS TRACIN 08.48 DOCTOR: Luis Anna Interpretating Date/Time 03/24/2018 17:51:09
--- NOTE | 2018-03-24 18:44 | P.DCO ---
- Diagnosis (1) Diastolic CHF Status: Acute - Physical Therapy Order: Evaluate and treat - Home Health Nursing Order: CHF education, Nursing assessment with vital signs Instructions: Daily weights. Please get in touch with dump truck driver or primary care if weight goes up by more than 5 pounds in 1 week. - Case Management Consult Case Management Consult-Home Health: Yes - Certification I have seen patient Garima Wilson on 03/24/18. My clinical findings support the need for the requested home health care services because: Limited ability to care for self I certify that my clinical findings support that this patient is homebound because: Unsafe to leave home unassisted
[2018-03-25] MEDS: Levothyroxine 75 MCG Tablet PO SCH (05:28)
[2018-03-25 05:35] LABS: Baso # (Auto) 0.1 th/mm3 (0.0-0.2); Baso % (Auto) 0.6 % (0.0-2.0); Eos # (Auto) 0.3 th/mm3 (0.0-0.4); Eos % (Auto) 3.7 % (0.0-4.0); Hematocrit 44.3 % (35.0-46.0); Hemoglobin 15.2 gm/dL (11.6-15.3); Lymph # (Auto) 1.1 th/mm3 (1.0-4.8); Lymph % (Auto) 11.8 % (9.0-44.0); Mean Corpuscular HGB Conc 34.3 % (32.0-36.0); Mean Corpuscular Hemoglobin 31.6 pg (27.0-34.0); Mean Corpuscular Volume 92.1 fL (80.0-100.0); Mean Platelet Volume 11.2 fL (7.0-11.0); Mono # (Auto) 0.9 th/mm3 (0.0-0.9); Mono % (Auto) 9.2 % (0.0-8.0); Neut % (Auto) 74.7 % (16.0-70.0); Platelet Count 232 th/mm3 (150-450); Red Blood Count 4.81 mil/mm3 (4.00-5.30); Red Cell Distribution Width 14.7 % (11.6-17.2); White Blood Count 9.4 th/mm3 (4.0-11.0)
[2018-03-25 05:48] LABS: Calcium 9.1 mg/dL (8.5-10.1); Carbon Dioxide 28.1 meq/L (21.0-32.0); Phosphorus 3.4 mg/dL (2.5-4.9); Potassium 3.6 meq/L (3.5-5.1)
[2018-03-25 05:50] LABS: Total Protein 7.1 g/dL (6.4-8.2)
[2018-03-25] MEDS: Carvedilol 6.25 MG Tablet PO SCH (08:36)
[2018-03-25] MEDS: Spironolactone 25 MG Tablet PO SCH (08:36)
--- NOTE | 2018-03-25 09:13 | P.PNCA ---
Subjective Interval history: Patient sitting up in chair, continues to have SOB, reports it has improved slightly. Edema still present, weeping has improved. She denies any chest pain. Very concerned about being discharged home, reports she doesn't feel well enough to go home. Medications and Allergies Allergies Allergy/AdvReac Type Severity Reaction Status Date / Time aspirin Allergy Severe GI BLEED Verified 03/23/18 17:42 diclofenac Allergy Severe GI BLEED Verified 03/23/18 17:42 etodolac Allergy Severe GI BLEED Verified 03/23/18 17:42 flurbiprofen Allergy Severe GI BLEED Verified 03/23/18 17:42 ibuprofen Allergy Severe GI BLEED Verified 03/23/18 17:42 indomethacin Allergy Severe GI BLEED Verified 03/23/18 17:42 ketoprofen Allergy Severe GI BLEED Verified 03/23/18 17:42 ketorolac Allergy Severe GI BLEED Verified 03/23/18 17:42 naproxen Allergy Severe GI BLEED Verified 03/23/18 17:42 oxaprozin Allergy Severe GI BLEED Verified 03/23/18 17:42 penicillin G Allergy Intermediate Hives Verified 03/23/18 17:42 codeine Allergy Mild N/V Verified 03/23/18 17:42 morphine AdvReac Intermediate NAUSEA Verified 03/23/18 17:42 Home Medications Medication Instructions Recorded Confirmed Type furosemide [Lasix] 20 mg PO DAILY 03/23/18 03/23/18 History gabapentin 100 mg PO DAILY 03/23/18 03/23/18 History levothyroxine [Synthroid] 75 mcg PO DAILY 03/23/18 03/23/18 History nifedipine [Procardia XL] 30 mg PO DAILY 03/23/18 03/23/18 History rivaroxaban [Xarelto] 20 mg PO QPM 03/23/18 03/23/18 History spironolactone 25 mg PO BID 03/23/18 03/23/18 History vitamin [id number] acid 1 tab PO DAILY 03/23/18 03/23/18 History Active Medications: Active Medications Acetaminophen (Tylenol) 650 mg PO Q4H PRN PRN Reason: PAIN 1-3 OR TEMP >101 F Last Admin: 03/24/18 10:35 Dose: 650 mg Al Hydrox/Mg Hydrox/Simethicone (Mag-Al Plus Susp Liq) 30 ml PO Q2H PRN PRN Reason: CONSTIPATION Al Hydroxide/Mg Hydroxide (Milk Of Magnesia Liq) 30 ml PO Q12H PRN PRN Reason: Mild Constipation Bisacodyl (Dulcolax Supp) 10 mg RECTAL DAILY PRN PRN Reason: SEVERE CONSITIPATION Carvedilol (Coreg) 6.25 mg PO BID [facility] [place] Last Admin: 03/25/18 08:36 Dose: 6.25 mg Furosemide (Lasix Inj) 40 mg IV.PUSH BID [facility] [place] Last Admin: 03/25/18 08:35 Dose: 40 mg Lactulose (Lactulose Liq) 30 ml PO DAILY PRN PRN Reason: SEVERE CONSITIPATION Levothyroxine Sodium (Synthroid) 75 mcg PO DAILY@0600 [facility] [place] Last Admin: 03/25/18 05:28 Dose: 75 mcg Ondansetron HCl (Zofran Inj) 4 mg IV.PUSH Q6H PRN PRN Reason: NAUSEA OR VOMITING Rivaroxaban (Xarelto) 15 mg PO AC DINNER [facility] [place] Last Admin: 03/24/18 17:38 Dose: 15 mg Sennosides (Senokot) 17.2 mg PO Q12H PRN PRN Reason: Moderate Constipation Sodium Chloride (Ns Flush) 2 ml IV.FLUSH BID [facility] [place] Last Admin: 03/25/18 08:36 Dose: 2 ml Sodium Chloride (Ns Flush) 2 ml IV.FLUSH PRN PRN PRN Reason: FLUSH AFTER USING IV ACCESS Spironolactone (Aldactone) 25 mg PO BID [facility] [place] Last Admin: 03/25/18 08:36 Dose: 25 mg Temazepam (Restoril) 15 mg PO HS PRN PRN Reason: SLEEP Physical Exam Vital signs: Vital Signs 03/24/18 10:00 03/24/18 11:00 03/24/18 12:00 Temperature 97.6 F Pulse Rate 74 71 68 Respiratory Rate 16 Blood Pressure 126/71 Pulse Oximetry 03/24/18 13:00 03/24/18 14:00 03/24/18 15:00 Temperature 97.8 F Pulse Rate 68 70 61 Respiratory Rate 16 Blood Pressure 104/56 L Pulse Oximetry 93 L 03/24/18 16:00 03/24/18 17:00 03/24/18 18:00 Temperature Pulse Rate 76 72 68 Respiratory Rate Blood Pressure Pulse Oximetry 03/24/18 19:00 12/20/18 20:00 03/24/18 21:00 Temperature 97.9 F Pulse Rate 63 96 H 110 H Respiratory Rate 18 Blood Pressure 120/62 Pulse Oximetry 95 03/24/18 22:00 03/24/18 23:00 03/25/18 00:00 Temperature Pulse Rate 116 H 72 116 H Respiratory Rate 18 Blood Pressure 129/72 Pulse Oximetry 93 L 03/25/18 01:00 03/25/18 02:00 03/25/18 03:00 Temperature Pulse Rate 51 L 62 73 Respiratory Rate 20 Blood Pressure 114/65 Pulse Oximetry 96 03/25/18 04:00 03/25/18 05:00 03/25/18 06:00 Temperature Pulse Rate 66 58 L 68 Respiratory Rate Blood Pressure Pulse Oximetry Intake & Output 03/24/18 03/25/18 03/25/18 18:59 06:59 18:59 Intake Total 360 / 360 480 / 480 Output Total 1300 / 1300 1400 / 1400 Balance -940 / -940 -920 / -920 Weight 82.2 kg Intake: Oral 360 / 360 480 / 480 Output: Urine 1300 / 1300 1400 / 1400 - Constitutional no acute distress, obese - Routine HEENT Exam Head: Present: normocephalic, atraumatic Eye: Present: EOMI, PERRL, normal accommodation ENT: Present: mucous membranes moist - Routine Neck Exam Present: supple, JVD Comments: JVD 2cm - Routine Respiratory Exam Present: rales, diminished air movement - Routine Cardiovascular Exam Present: irregularly irregular - Routine Abdominal Exam Present: soft - Routine Extremities Exam Present: edema Comments: RLE wheeping - Routine Skin Exam Present: intact - Routine Neurological Exam Present: alert, oriented X3 - Detailed Neurological Exam: Coma Scale Eye Opening: Spontaneous Verbal Response: Oriented Motor Response: Obey commands [place] Coma Scale Total: 15 - Routine Psychiatric Exam Present: normal affect Results 03/25/18 04:13 03/25/18 04:13 Cardiac Enzymes 03/23/18 03/23/18 03/24/18 Range/Units 16:06 16:06 06:03 AST 22 23 (15-37) U/L B-Natriuretic Peptide 256 H (0-100) pg/mL 03/25/18 Range/Units 04:13 AST 27 (15-37) U/L B-Natriuretic Peptide (0-100) pg/mL Coagulation 03/23/18 03/23/18 Range/Units 16:06 16:06 PT 12.8 H (9.8-11.6) sec B-Natriuretic Peptide 256 H (0-100) pg/mL CBC 03/23/18 03/24/18 03/25/18 Range/Units 16:06 06:03 04:13 WBC 9.3 8.7 9.4 (4.0-11.0) th/mm3 RBC 4.59 4.53 4.81 (4.00-5.30) mil/mm3 Hgb 14.4 14.2 15.2 (11.6-15.3) gm/dL Hct 43.1 41.8 44.3 (35.0-46.0) % Plt Count 235 229 232 (150-450) th/mm3 Neut # (Auto) 7.1 6.4 7.0 (1.8-7.7) th/mm3 Lymph # (Auto) 1.0 1.0 1.1 (1.0-4.8) th/mm3 [place] # (Auto) 0.8 0.9 0.9 (0.0-0.9) th/mm3 Eos # (Auto) 0.3 0.3 0.3 (0.0-0.4) th/mm3 Baso # (Auto) 0.1 0.1 0.1 (0.0-0.2) th/mm3 Comprehensive Metabolic Panel 03/23/18 03/24/18 03/25/18 Range/Units 16:06 06:03 04:13 Sodium 140 136 137 (136-145) meq/L Potassium 4.2 4.0 3.6 (3.5-5.1) meq/L Chloride 105 103 99 (98-107) meq/L Carbon Dioxide 27.9 25.7 28.1 (21.0-32.0) meq/L BUN 26 H 27 H 32 H (7-18) mg/dL Creatinine 1.10 H 1.17 H 1.32 H (0.50-1.00) mg/dL Calcium 9.1 9.3 9.1 (8.5-10.1) mg/dL Direct Bilirubin 0.2 (0.0-0.2) mg/dL Indirect Bilirubin 0.5 (0.0-0.8) mg/dL AST 22 23 27 (15-37) U/L ALT 14 12 13 (10-53) U/L Alkaline Phosphatase 71 67 69 (45-117) U/L Total Protein 7.5 6.7 D 7.1 (6.4-8.2) g/dL Albumin 3.4 3.1 L 3.0 L (3.4-5.0) g/dL Intake and Output 03/24/18 03/25/18 03/25/18 22:59 06:59 14:59 Intake Total 360 / 360 480 / 480 Output Total 1300 / 1300 1400 / 1400 Balance -940 / -940 -920 / -920 Intake: Oral 360 / 360 480 / 480 Output: Urine 1300 / 1300 1400 / 1400 Other: Weight 82.2 kg - Imaging and Cardiology Imaging: Impressions Chest X-Ray 03/23/18 00:00 CONCLUSION: 1. Bilateral pulmonary infiltrates are noted consistent with pulmonary edema or pneumonia. Clinical correlation is recommended. 2. Mild cardiomegaly. 3. Degenerative changes and scoliosis are noted throughout the thoracolumbar spine. Assessment and Plan - Plan Assesment Acute exacerbation of congestive heart failure with mid range ejection fraction. Recent decrease of ejection fraction from 51% to 40% on the basis of echocardiogram completed in the office yesterday. Atrial fibrillation with history of stroke anticoagulated on Xarelto. 15 beat run of nonsustained ventricular tachycardia Hypertension history Hypothyroid Plan: Start Coreg 6.25 mg twice a day with hold parameters Continue IV diuresis Continue spironolactone Continue to follow up renal function and electrolytes Plan to start a small dose of Entresto before discharge The patient meets criteria for Xarelto 15 mg daily on the basis of creatinine clearance 42 Will plan to DC home tomorrow if patient is stable overnight. Will continue with IV diuresis today, and switch to lasix 40mg daily tomorrow. The patient was seen and evaluated by Dr. Smith who completed [id number] encounter and physical exam and participated in evaluation and management. OK to d/c in am if stable chf better. Code Status: Full Code Discussed Condition With: Dr. Smith, RN, and daughter
--- NOTE | 2018-03-25 10:51 | P.PNIM ---
Subjective Interval history: Patient says she is feeling all right today. Denies any chest pain. Reports shortness of breath is improved. Physical Exam Vital signs: Vital Signs 03/24/18 11:00 03/24/18 12:00 03/24/18 13:00 Temperature 97.6 F Pulse Rate 71 68 68 Respiratory Rate 16 Blood Pressure 126/71 Pulse Oximetry 03/24/18 14:00 03/24/18 15:00 03/24/18 16:00 Temperature 97.8 F Pulse Rate 70 61 76 Respiratory Rate 16 Blood Pressure 104/56 L Pulse Oximetry 93 L 03/24/18 17:00 03/24/18 18:00 03/24/18 19:00 Temperature 97.9 F Pulse Rate 72 68 63 Respiratory Rate 18 Blood Pressure 120/62 Pulse Oximetry 95 03/24/18 20:00 03/24/18 21:00 03/24/18 22:00 Temperature Pulse Rate 96 H 110 H 116 H Respiratory Rate Blood Pressure Pulse Oximetry 03/24/18 23:00 03/25/18 00:00 03/25/18 01:00 Temperature Pulse Rate 72 116 H 51 L Respiratory Rate 18 Blood Pressure 129/72 Pulse Oximetry 93 L 03/25/18 02:00 03/25/18 03:00 03/25/18 04:00 Temperature Pulse Rate 62 73 66 Respiratory Rate 20 Blood Pressure 114/65 Pulse Oximetry 96 03/25/18 05:00 03/25/18 06:00 03/25/18 07:00 Temperature Pulse Rate 58 L 68 63 Respiratory Rate Blood Pressure Pulse Oximetry 03/25/18 08:00 03/25/18 09:00 03/25/18 09:31 Temperature 97.6 F Pulse Rate 70 62 79 Respiratory Rate 14 Blood Pressure 110/66 Pulse Oximetry 96 Intake & Output 03/24/18 03/25/18 03/25/18 18:59 06:59 18:59 Intake Total 360 / 360 480 / 480 Output Total 1300 / 1300 1400 / 1400 Balance -940 / -940 -920 / -920 Weight 82.2 kg Intake: Oral 360 / 360 480 / 480 Output: Urine 1300 / 1300 1400 / 1400 Narrative: GENERAL: Patient sitting up in recliner. Appears comfortable. SKIN: Warm and dry. HEAD: Normocephalic. EYES: No scleral icterus. No injection or drainage. NECK: Supple, trachea midline. No JVD. CARDIOVASCULAR: Regular rate and rhythm without murmurs, gallops, or rubs. RESPIRATORY: Breath sounds equal bilaterally. No accessory muscle use. GASTROINTESTINAL: Abdomen soft, non-tender, nondistended. MUSCULOSKELETAL: No cyanosis. +2 peripheral edema. Improving. BACK: Nontender without obvious deformity. No CVA tenderness. Results - Labs CBC & Chem 7: 03/25/18 04:13 03/25/18 04:13 Laboratory Results - last 24 hr 03/25/18 03/25/18 04:13 04:13 WBC 9.4 RBC 4.81 Hgb 15.2 Hct 44.3 MCV 92.1 MCH 31.6 MCHC 34.3 RDW 14.7 Plt Count 232 MPV 11.2 H Neut % (Auto) 74.7 H Lymph % (Auto) 11.8 [place] % (Auto) 9.2 H Eos % (Auto) 3.7 Baso % (Auto) 0.6 Neut # (Auto) 7.0 Lymph # (Auto) 1.1 [place] # (Auto) 0.9 Eos # (Auto) 0.3 Baso # (Auto) 0.1 WBC Differential . Differential Comment Auto diff final Sodium 137 Potassium 3.6 Chloride 99 Carbon Dioxide 28.1 Anion Gap 10 BUN 32 H Creatinine 1.32 H Estimated GFR 38 L Random Glucose 130 H Calcium 9.1 Phosphorus 3.4 Magnesium 2.0 Total Bilirubin 0.7 Direct Bilirubin 0.2 Indirect Bilirubin 0.5 AST 27 ALT 13 Alkaline Phosphatase 69 Total Protein 7.1 Albumin 3.0 L Assessment and Plan - Assessment (1) Diastolic CHF Code(s): I50.30 - Unspecified diastolic (congestive) heart failure Status: Acute - Plan //Acute diastolic CHF exacerbation. = Direct admission from drywall application supervisor office -Echocardiogram with Doppler performed at Dr. Smith's office = Chest x-ray with bilateral pulmonary edema. Extreme bilateral lower extremity edema = Basic labs including BNP ordered. = We will consult drywall application supervisor. Patient placed on twice daily IV Lasix, spironolactone. Fluid restrictions. Continue to monitor fluid status. Monitor labs tomorrow. = Cardiology following. Hold off on nifedipine due to peripheral edema. Cardiology would like to start patient on Entresto. Continue to monitor = 03/25. Peripheral edema improving. Slight bumping creatinine to 1.3. Will liberalize fluid restrictions a little and switch to by mouth Lasix, monitor. //History of atrial fibrillation with history of CVA. Continue on Xarelto at night with dinner. = Xarelto dose changed by cardiology due to renal insufficiency. /Hypertension. Blood pressure acceptable. Patient with significant bilateral lower extremity edema. Will hold off on nifedipine until return BNP. Patient may benefit from change in medication. Blood pressure acceptable currently. Continue to monitor. = Blood pressure acceptable. Continue to monitor. //Hypothyroidism. Chronic. Patient denies chills, however appears to be cold in the room which does not seem to be that cold. We will check TSH. = TSH 1.7. Acceptable. Continue home meds. //Chronic neuropathy. Continue home medication. Discharge Planning: PT recommends rehab Plan for discharge to [facility] tomorrow when cleared by cardiology and if renal function is stable.
[2018-03-25] MEDS: Furosemide 20 MG Tablet PO SCH (17:07)
[2018-03-25] MEDS: Rivaroxaban 15 MG Tablet PO SCH (17:07)
[2018-03-25] MEDS: Acetaminophen 325 MG Tablet PO PRN (21:23)
[2018-03-26] MEDS: Levothyroxine 75 MCG Tablet PO SCH (06:23)
[2018-03-26] MEDS: Furosemide 20 MG Tablet PO SCH (08:13)
[2018-03-26] MEDS ORDERED: Spironolactone 25 MG Tablet PO SCH (09:00)
[2018-03-26 09:58] LABS: Calcium 9.5 mg/dL (8.5-10.1); Carbon Dioxide 28.6 meq/L (21.0-32.0); Potassium 3.5 meq/L (3.5-5.1)
--- NOTE | 2018-03-26 13:16 | P.PN ---
Subjective Interval history: Follow-up acute diastolic CHF exacerbation March 26, 2018-patient seen and examined, reports some improvement of shortness of breath. Currently with soft BP however patient currently asymptomatic. Entresto was held this morning. Patient denies any chest pain. Physical Exam Vital signs: Vital Signs 03/25/18 14:00 03/25/18 15:00 03/25/18 15:25 Temperature 97.9 F Pulse Rate 75 61 80 Respiratory Rate 16 Blood Pressure 117/64 Pulse Oximetry 94 L 03/25/18 16:00 03/25/18 17:00 03/25/18 17:21 Temperature Pulse Rate 63 67 70 Respiratory Rate Blood Pressure Pulse Oximetry 03/25/18 19:00 03/25/18 20:00 03/25/18 21:00 Temperature 98.4 F Pulse Rate 77 68 72 Respiratory Rate 18 Blood Pressure 101/77 Pulse Oximetry 96 03/25/18 22:00 03/25/18 23:00 03/26/18 00:00 Temperature 97.6 F Pulse Rate 62 55 L 78 Respiratory Rate 16 Blood Pressure 103/54 L Pulse Oximetry 97 03/26/18 01:00 03/26/18 02:00 03/26/18 03:00 Temperature 98.2 F Pulse Rate 56 L 56 L 64 Respiratory Rate 16 Blood Pressure 112/64 Pulse Oximetry 98 03/26/18 04:00 03/26/18 05:00 03/26/18 06:00 Temperature Pulse Rate 60 54 L 57 L Respiratory Rate Blood Pressure Pulse Oximetry 03/26/18 07:00 03/26/18 08:00 03/26/18 09:00 Temperature 97 F L Pulse Rate 66 64 70 Respiratory Rate 18 Blood Pressure 97/54 L Pulse Oximetry 95 03/26/18 10:00 03/26/18 11:00 03/26/18 12:00 Temperature 97.5 F L Pulse Rate 64 56 L 71 Respiratory Rate 18 Blood Pressure 95/54 L Pulse Oximetry 94 L 03/26/18 13:00 Temperature Pulse Rate 64 Respiratory Rate Blood Pressure Pulse Oximetry Intake & Output 03/25/18 03/26/18 03/26/18 18:59 06:59 18:59 Intake Total 720 / 720 240 / 240 Output Total 1100 / 1100 550 / 550 Balance -380 / -380 -310 / -310 Weight 82 kg Intake: Oral 720 / 720 240 / 240 Output: Urine 1100 / 1100 550 / 550 Narrative: GENERAL: NAD SKIN: Warm and dry. HEAD: Atraumatic. Normocephalic. EYES: Pupils equal and round. No scleral icterus. No injection or drainage. ENT: No nasal bleeding or discharge. Mucous membranes pink and moist. NECK: Trachea midline. No JVD. CARDIOVASCULAR: Regular rate and rhythm. RESPIRATORY: No accessory muscle use. Clear to auscultation. Breath sounds equal bilaterally. GASTROINTESTINAL: Abdomen soft, non-tender, nondistended. Hepatic and splenic margins not palpable. MUSCULOSKELETAL: Extremities without clubbing, cyanosis, or edema. No obvious deformities. NEUROLOGICAL: Awake and alert. No obvious cranial nerve deficits. Motor grossly within normal limits. Five out of 5 muscle strength in the arms and legs. Normal speech. PSYCHIATRIC: Appropriate mood and affect; insight and judgment normal. Results - Labs CBC & Chem 7: 03/25/18 04:13 03/26/18 07:44 Laboratory Results - last 24 hr 03/26/18 07:44 Sodium 135 L Potassium 3.5 Chloride 96 L Carbon Dioxide 28.6 Anion Gap 10 BUN 44 H Creatinine 1.46 H Estimated GFR 34 L Random Glucose 102 Calcium 9.5 - Procedures none Assessment and Plan - Assessment (1) Diastolic CHF Code(s): I50.30 - Unspecified diastolic (congestive) heart failure Status: Acute - Plan 87-year-old female with Acute on chronic diastolic CHF Currently on Lasix 40 mg daily however due to hypotension will decrease to 20 mg daily Will hold Entresto as prescribed secondary to hypotension Continue with beta-laura Appreciate input from cardiology. 2D echo with Doppler performed at's patient's associate programmer office History of atrial fibrillation Continue with beta-laura and Xarelto however decreased to 50 mg daily secondary to acute renal failure History of hypertension Secondary to current episode of hypotension, will discontinue Entresto and decrease Lasix to 20 mg daily and the patient seen by associate programmer Hypothyroidism Continue home medication Chronic neuropathy Stable on home medications
--- NOTE | 2018-03-26 13:18 | P.DS ---
Date of admission: 03/23/18 14:56 Primary care physician: UNKNOWN Brief History from admission: 87-year-old female with a history of atrial fibrillation, hypertension, diastolic CHF who presents as a direct admission from her fitter's assistant Dr. Waller's office with a 3-week history of progressively worsening shortness of breath, generalized fatigue, as well as bilateral lower extremity swelling now with weeping in bilateral legs over the past 3 days. She denies any chest pain. Denies any nausea or vomiting. Denies any cough. Denies any recent medication changes. daughter reports that echocardiogram was performed in Dr. Smith's office. DS: Diagnosis - Discharge Diagnosis (1) Diastolic CHF Status: Acute DS: Medications - Discharge Medications Prescriptions: carvedilol [Coreg] 3.125 mg PO BID #60 tab rivaroxaban [Xarelto] 15 mg PO AC DINNER #30 tab spironolactone [Aldactone] 25 mg PO DAILY #30 tab DS: Summary Hospital Course: Patient admitted secondary to acute on chronic diastolic CHF exacerbation for which she was started on IV diuretics which was subsequently increased to 40mg daily. However secondary to hypotension, she will be discharged on 20 mg Lasix daily. Patient was also started on Entresto which will also be held and subsequently discontinued due to hypotension. Cardiology was consulted. She was continued on Xarelto for chronic A. fib. Patient was also continue treatment for other chronic medical conditions. PT was consulted. Prior to discharge, patient remained stable. - Time Spent with Patient Total time spent providing and/or coordinating discharge services: Greater than 30 minutes - Quality: VTE Deep Vein Thrombosis/Pulmonary Embolism Present on Admission: No Exam Vital signs: Vital Signs 03/25/18 14:00 03/25/18 15:00 03/25/18 15:25 Temperature 97.9 F Pulse Rate 75 61 80 Respiratory Rate 16 Blood Pressure 117/64 Pulse Oximetry 94 L 03/25/18 16:00 03/25/18 17:00 03/25/18 17:21 Temperature Pulse Rate 63 67 70 Respiratory Rate Blood Pressure Pulse Oximetry 03/25/18 19:00 03/25/18 20:00 03/25/18 21:00 Temperature 98.4 F Pulse Rate 77 68 72 Respiratory Rate 18 Blood Pressure 101/77 Pulse Oximetry 96 03/25/18 22:00 03/25/18 23:00 03/26/18 00:00 Temperature 97.6 F Pulse Rate 62 55 L 78 Respiratory Rate 16 Blood Pressure 103/54 L Pulse Oximetry 97 03/26/18 01:00 03/26/18 02:00 03/26/18 03:00 Temperature 98.2 F Pulse Rate 56 L 56 L 64 Respiratory Rate 16 Blood Pressure 112/64 Pulse Oximetry 98 03/26/18 04:00 03/26/18 05:00 03/26/18 06:00 Temperature Pulse Rate 60 54 L 57 L Respiratory Rate Blood Pressure Pulse Oximetry 03/26/18 07:00 03/26/18 08:00 03/26/18 09:00 Temperature 97 F L Pulse Rate 66 64 70 Respiratory Rate 18 Blood Pressure 97/54 L Pulse Oximetry 95 03/26/18 10:00 03/26/18 11:00 03/26/18 12:00 Temperature 97.5 F L Pulse Rate 64 56 L 71 Respiratory Rate 18 Blood Pressure 95/54 L Pulse Oximetry 94 L 03/26/18 13:00 Temperature Pulse Rate 64 Respiratory Rate Blood Pressure Pulse Oximetry Intake & Output 03/25/18 03/26/18 03/26/18 18:59 06:59 18:59 Intake Total 720 / 720 240 / 240 Output Total 1100 / 1100 550 / 550 Balance -380 / -380 -310 / -310 Weight 82 kg Intake: Oral 720 / 720 240 / 240 Output: Urine 1100 / 1100 550 / 550 Narrative: GENERAL: NAD SKIN: Warm and dry. HEAD: Atraumatic. Normocephalic. EYES: Pupils equal and round. No scleral icterus. No injection or drainage. ENT: No nasal bleeding or discharge. Mucous membranes pink and moist. NECK: Trachea midline. No JVD. CARDIOVASCULAR: Regular rate and rhythm. RESPIRATORY: No accessory muscle use. Clear to auscultation. Breath sounds equal bilaterally. GASTROINTESTINAL: Abdomen soft, non-tender, nondistended. Hepatic and splenic margins not palpable. MUSCULOSKELETAL: Extremities without clubbing, cyanosis, or edema. No obvious deformities. NEUROLOGICAL: Awake and alert. No obvious cranial nerve deficits. Motor grossly within normal limits. Five out of 5 muscle strength in the arms and legs. Normal speech. PSYCHIATRIC: Appropriate mood and affect; insight and judgment normal. Results Procedures completed during hospitalization: none Labs on day of discharge: Labs from last 24 hours 03/26/18 07:44 Sodium 135 L Potassium 3.5 Chloride 96 L Carbon Dioxide 28.6 Anion Gap 10 BUN 44 H Creatinine 1.46 H Estimated GFR 34 L Random Glucose 102 Calcium 9.5 - Impressions ITS Impressions Chest X-Ray 03/23/18 00:00 CONCLUSION: 1. Bilateral pulmonary infiltrates are noted consistent with pulmonary edema or pneumonia. Clinical correlation is recommended. 2. Mild cardiomegaly. 3. Degenerative changes and scoliosis are noted throughout the thoracolumbar spine. Discharge Plan - Discharge Disposition Patient Disposition: Discharge to SNF - Discharge Condition Condition: Good - Discharge Order Discharge Orders: Discharge Order (Routine); Ordered 03/26/18 Ordered By: Matt Yanes - Physicians Team Primary Care Provider: UNKNOWN, Attending Provider: Matt Yanes Other Providers: Harris Smith MD ; Matheus Park - Rxs /Orders / Referrals /Forms Prescriptions: New carvedilol [Coreg] 3.125 mg Tablet 3.125 mg PO BID Qty: 60 RF: 0 rivaroxaban [Xarelto] 15 mg Tablet 15 mg PO AC DINNER Qty: 30 RF: 0 spironolactone [Aldactone] 25 mg Tablet 25 mg PO DAILY Qty: 30 RF: 0 Continue furosemide [Lasix] 20 mg Tablet 20 mg PO DAILY gabapentin 100 mg Capsule 100 mg PO DAILY levothyroxine [Synthroid] 75 mcg Tablet 75 mcg PO DAILY vitamin L83-[id number] acid 0.5-1 mg Tablet 1 tab PO DAILY Discontinued nifedipine [Procardia XL] 30 mg Tablet Extended Release 24hr 30 mg PO DAILY rivaroxaban [Xarelto] 20 mg Tablet 20 mg PO QPM spironolactone 25 mg Tablet 25 mg PO BID Referrals: Mike Purvis MD [Family Provider] - See Instructions [facility] [Agency] - See Instructions UNKNOWN, [Primary Care Provider] - See Instructions - Discharge Instructions Patient Printed Instructions: Heart Failure (DC), Heart Healthy Diet (DC), Low- Sodium Diet (DC) Additional Instructions: Your Health Problems: Goals to Promote Your Health: * To prevent worsening of your condition * To maintain your health at the optimal level Directions to Meet Your Goals: * Take your medications as prescribed * Follow your dietary instruction * Follow activity as directed * Keep your appointments as scheduled * Take your immunizations and boosters as scheduled * If your symptoms worsen call your PCP * If no PCP go to Urgent Care or Emergency Room Smoking is dangerous to your health. Avoid second hand smoke. You may reach the 24-hour crisis hotline for domestic abuse at .
== END 2018-03-26 13:23 ==
LOC: HCIS 14:56
PROVIDERS: ADMIT Hospitalist; ATTEND Hospitalist